=== PATIENT | female | born 1955 | race Caucasian/White ===

== ENCOUNTER 2017-02-08 13:03 | Day surgery (SDC) | payer BC ==
[~2017-02-08] VITALS: Ht 154.9 cm; Wt 85.9 kg
[2017-02-08 13:48] VITALS: Ht 154.9 cm; Wt 85.9 kg
[2017-02-08] MEDS ORDERED: THROID (13:55)
[2017-02-08 15:42] VITALS: BP 146/67; PULSE 61; RESP 18
--- NOTE | 2017-02-08 16:31 | OPPN ---
Date/Time of Note Date/Time of Note DATE: 02/08/17 TIME: 16:29 Operative Report Preoperative Diagnosis Rectal bleeding and change in bowel habits Postoperative Diagnosis Normal colonoscopy fixed left colon Operation/Procedure Performed Colonoscopy Surgeon see signature line dental hygiene administrative assistant None Anesthesia: moderate sedation (Versed 4 mg fentanyl 100 mcg total. Of moderate sedation 23 minute) Estimated blood loss: none Transfusion Required none Specimen None Grafts/Implants none Complications none NABILA HAHN MD Feb 08, 2017 16:31
[2017-02-08] MEDS ORDERED: MIDAZOLAM 1 MG/ML 2 ML INJ ONE ×2 (16:38)
[2017-02-08] MEDS ORDERED: FENTAnyl 50 MCG/ML VIAL ONE (16:38)
[2017-02-08 17:00] VITALS: BP 139/73; PULSE 64; RESP 21
--- NOTE | 2017-02-09 05:26 | GILP ---
DATE OF PROCEDURE: PREOPERATIVE DIAGNOSIS: Rectal bleeding, change in bowel habits. PROCEDURE DONE: Colonoscopy. POSTOPERATIVE DIAGNOSIS: Fixed sigmoid colon, otherwise normal colonoscopy. DESCRIPTION OF PROCEDURE: The patient was put in left lateral decubitus after obtaining informed co nsent, monitored oximetry, EKG, blood pressure. Four mg IV Versed and 100 mcg of fentanyl given. R ectal exam done, which was normal. Then I advanced an Olympus video colonoscope all the way to cecu m. Very restricted left colon due to adhesions, probably fixed colon, but I was able to pass the sc ope all the way to cecum. Ileocecal valve, appendiceal opening identified. Photography done. Cecu m, ascending colon, transverse colon normal. Descending colon normal. Sigmoid colon was somewhat f ixed, rectum normal including retroflexion. Postop, patient had no complication. PLAN: Will be to follow her p.r.n. and advised her to take high-fiber diet. She will have a repeat colonoscopy in 10 years. Total moderate sedation time 23 minutes. Dictated By: NABILA JOSEPH Conf#: [id number] DID#: [id number] CC: Jose Perry;*EndCC*
== END 2017-02-08 17:44 | disposition home or self-care (01) ==
LOC: GIL 13:03
PROVIDERS: ATTEND Internal Medicine
DX: R19.4 Change in bowel habit (principal); E11.9 Type 2 diabetes mellitus without complications; I10 Essential (primary) hypertension; E78.5 Hyperlipidemia, unspecified
CPT/HCPCS: 45378; 82962; J2250; J3010; Z7610

== ENCOUNTER → 2017-05-20 | Outpatient (CLI) | END | disposition home or self-care (01) ==